=== PATIENT | male | born 1945 | race Caucasian/White ===

== ENCOUNTER 2017-01-21 09:41 | Day surgery (SDC) | payer MEDICARE, OTHER ==
[2017-01-20 12:34] VITALS: BMI 25.0
[~2017-01-21 09:41] MED LIST: LACTATED RINGERS 1,000 ML IV SCH; LIDOCAINE 1% 20 ML VIAL (10MG/ML) FOR IV START INTRADERMA PRN
[2017-01-21 09:58] VITALS: RESP 16; TEMP 97.3
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
[2017-01-21] MEDS ORDERED: LIDOCAINE 1% INJ 10MG/ML (20 ML MDV) ONE (10:54)
[2017-01-21] MEDS ORDERED: PROPOFOL 10 MG/ML 20 ML VIAL IV ONE (10:54)
[2017-01-21] MEDS ORDERED: LACTATED RINGERS 1,000 ML IV SCH (11:15)
--- NOTE | 2017-01-21 11:16 | P.PCN ---
Date of Procedure: 01/21/17 Preoperative Diagnosis: Postoperative Diagnosis: Procedure(s) Performed: Preoperative Dx: Malnutrition Postoperative Dx: Same Procedure: EGD with PEG tube replacement Anesthesia: Sedation Endoscopist: Dr. Delgado Specimens: None Endoscopic Procedure: The patient was on the endoscopy table in the left decubitus position. The Olympus gastroscope was inserted into the oropharynx and passed under direct visualization to the region of the third portion of the duodenum. From that point the scope was slowly withdrawn inspecting all surfaces carefully. There were no neoplastic inflammatory or polypoid lesions throughout the duodenum. The pylorus was widely patent. The stomach was carefully inspected. There was gastritis present. The previous PEG tube was noted and removed using traction. This was one piece. The new 20-Romansh non- balloon replacement catheter was advanced without difficulty. There were no neoplastic inflammatory or polypoid lesions throughout the visualized esophagus. The patient was then taken to the recovery room in stable condition per anesthesia guidelines. Recommendations: Resume tube feeds. Implants: Indications for Procedure: Operative Findings: Description of Procedure:
[2017-01-21 11:47] VITALS: BP 113/73; PULSE 79
== END 2017-01-21 12:23 | disposition home or self-care (01) ==
LOC: ORWHC2ENDO 09:41
PROVIDERS: ATTEND Surgery
DX: Z43.1 Encounter for attention to gastrostomy (principal); E46 Unspecified protein-calorie malnutrition; K29.70 Gastritis, unspecified, without bleeding; G82.50 Quadriplegia, unspecified; Z99.3 Dependence on wheelchair; Z87.820 Personal history of traumatic brain injury; K21.9 Gastro-esophageal reflux disease without esophagitis; Z86.14 Personal history of Methicillin resistant Staphylococcus aureus infection; Z79.899 Other long term (current) drug therapy; Z88.0 Allergy status to penicillin; Z88.2 Allergy status to sulfonamides
CPT/HCPCS: 43246; J2001; J2704

== ENCOUNTER 2017-07-12 00:57 | Emergency (ER) | payer MEDICARE, OTHER ==
[2017-07-12 01:06] VITALS: TEMP 96.8
--- NOTE | 2017-07-12 01:49 | XR ---
EXAM: XR Chest, 2 Views CLINICAL HISTORY: Reason: Cough TECHNIQUE: Frontal and lateral views of the chest. COMPARISON: 06/30/17 FINDINGS: Lungs: Low lung volumes. Right base subsegmental atelectasis Pleural space: Unremarkable. No pneumothorax. Heart: Mild cardiomegaly. Mediastinum: Unremarkable. Bones/joints: Unremarkable. Vasculature: Mild pulmonary venous congestion which is unchanged. IMPRESSION: Mild pulmonary venous congestion which is unchanged.
[2017-07-12] MEDS ORDERED: FUROSEMIDE 20 MG TAB PEG/G-TUBE STA (02:15)
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
[2017-07-12 02:38] VITALS: BP 118/70; PULSE 84; RESP 20
== END 2017-07-12 02:38 | disposition home or self-care (01) ==
LOC: EC 00:57
DX: R05 Cough (principal); R09.89 Other specified symptoms and signs involving the circulatory and respiratory systems; K21.9 Gastro-esophageal reflux disease without esophagitis; Z93.1 Gastrostomy status; Z86.14 Personal history of Methicillin resistant Staphylococcus aureus infection; Z88.0 Allergy status to penicillin; Z88.2 Allergy status to sulfonamides; Z79.51 Long term (current) use of inhaled steroids; Z79.899 Other long term (current) drug therapy
CPT/HCPCS: 71020; 99283